=== PATIENT | female | born 1995 | race Caucasian/White ===

== ENCOUNTER → 2016-07-11 | Outpatient (CLI) | payer OTHER ==
--- NOTE | 2016-07-11 14:25 | REP ---
OB ULTRASOUND: Real-time sonographic evaluation of gravid uterus performed utilizing transabdominal technique. There is a single living intrauterine gestation. The estimated gestational age is 30 weeks 6 days with EDC 09/13/2016. Today's measurements indicate appropriate growth. BPD 76 mm = 30 weeks 3 days, 43rd percentile HC 285 mm = 31 weeks 2 days, 56th percentile AC 264 mm = 30 weeks 4 days, 45th percentile Femur length 60 mm = 31 weeks 2 days, 55th percentile HC/AC ratio 1.08 within normal range. Estimated weight 1646 grams, 41st percentile. Cervix closed and measures 3.3 cm in length. heart rate 141 beats per minute. Amniotic fluid within normal limits, PARAM 11.3 within normal range of 8.8 to 23.8. S/D ratio 3.93 is slightly above normal range of 2.5 to 3.5. RI 0.75 is at upper limits of the normal range, 0.59 to 0.75. SEEN/GROSSLY UNREMARKABLE Lateral ventricles Yes Posterior fossa Yes Upper lip Yes Four-chamber heart Yes LVOT Yes RVOT Yes Stomach Yes Cord insertion Yes Three vessel cord Yes Kidneys Yes Bladder Yes Spine Yes Echogenic focus in the left ventricle likely related to chordae tendineae. position: Vertex. Placenta: Grade 1 and to the right with no previa or abruption. Signed by Chip Nina MD 07/11/2016 08:11 P
== END ==
LOC: M RAD 09:35
PROVIDERS: ATTEND Advanced Practice Midwife
DX: Z36 Encounter for antenatal screening of mother (principal); Z3A.30 30 weeks gestation of pregnancy

== ENCOUNTER → 2016-08-02 | Outpatient (CLI) | payer OTHER ==
[2016-08-02 15:25] LABS: BASO % 0.3 % (0.0-1.0); EOS % 0.5 % (0.0-3.0); LARGE UNSTAINED CELL # 0.1 K/mm3 (0.0-0.4); LARGE UNSTAINED CELL % 1.3 % (0.0-4.0); LYMPH % 17.7 % (24.0-44.0); MEAN CORPUSCULAR HEMOGLOBIN 30.4 pg (27.0-33.0); MEAN CORPUSCULAR HGB CONC 33.3 g/dl (32.0-36.5); MEAN CORPUSCULAR VOLUME 91.4 fl (80.0-96.0); MONO # 0.6 K/mm3 (0.0-0.8); MONO % 5.9 % (0.0-5.0); NEUTROPHILS # 7.9 K/mm3 (1.8-7.7); NEUTROPHILS % 74.4 % (36.0-66.0); PLATELET COUNT, AUTOMATED 302 k/mm3 (150-450); RED CELL DISTRIBUTION WIDTH 12.5 % (11.5-14.5); WHITE BLOOD COUNT 10.6 K/mm3 (4.0-10.0)
== END ==
LOC: M LAB 13:27
PROVIDERS: ATTEND Advanced Practice Midwife
DX: Z36 Encounter for antenatal screening of mother (principal)

== ENCOUNTER 2016-08-06 23:13 | Outpatient (CLI) | payer OTHER ==
[~2016-08-06] VITALS: Ht 165.1 cm; Wt 96.0 kg
[2016-08-06 23:40] VITALS: BP 137/77
== END 2016-08-07 00:35 | disposition home or self-care (01) ==
LOC: M LDO 23:13
PROVIDERS: ATTEND Advanced Practice Midwife
DX: O26.893 Other specified pregnancy related conditions, third trimester (principal); Z3A.34 34 weeks gestation of pregnancy

== ENCOUNTER → 2016-08-18 | Outpatient (REF) | payer OTHER | LOC: M LAB REF 09:00 | PROVIDERS: ATTEND Advanced Practice Midwife | DX: Z36 Encounter for antenatal screening of mother (principal) ==

== ENCOUNTER 2016-09-19 16:57 | Inpatient (IN) | payer OTHER ==
[2016-09-19] VITALS (25 sets, daily range): BP systolic 108–162; BP diastolic 59–93
[~2016-09-19] VITALS: Ht 165.1 cm; Wt 93.0 kg
[2016-09-19] MEDS ORDERED: LACTATED RINGER'S 1000 ML IV STA (17:49)
[2016-09-19] MEDS ORDERED: LR 1,000 ML IV SCH (17:49)
[2016-09-19 18:57] LABS: MEAN CORPUSCULAR HEMOGLOBIN 30.1 pg (27.0-33.0); MEAN CORPUSCULAR HGB CONC 33.5 g/dl (32.0-36.5); MEAN CORPUSCULAR VOLUME 90.1 fl (80.0-96.0); RED CELL DISTRIBUTION WIDTH 13.1 % (11.5-14.5); WHITE BLOOD COUNT 18.5 K/mm3 (4.0-10.0)
[2016-09-19] MEDS ORDERED: FENTANYL 2MCG/ML ROPIVACAINE 0.2% IN 0.9% NACL 200ML IVBAG As Ordered ONE (19:05)
[2016-09-19 19:29] LABS: ALT/SGPT 22 U/L (12-78); AST/SGOT 17 U/L (15-37); BILIRUBIN,TOTAL 0.2 MG/DL (0.2-1.0); CREATININE FOR GFR 0.46 MG/DL (0.55-1.02); URIC ACID 4.5 MG/DL (2.6-6.0)
[2016-09-19 19:45] LABS: METHADONE URINE NEGATIVE (NEGATIVE)
[2016-09-19] MEDS ORDERED: diphenhydrAMINE INJ 50MG/ML VIAL (J1200) IV PRN (20:30)
[2016-09-19] MEDS ORDERED: NALOXONE INJ 0.4 MG/1 ML VIAL (J2310) IV PRN (20:30)
[2016-09-19] MEDS ORDERED: ONDANSETRON 4MG/2ML VIAL (J2405) IV PRN (20:30)
[2016-09-19] MEDS ORDERED: EPIDURAL COMMENT XX SCH (20:30)
[2016-09-19] MEDS ORDERED: FENTANYL/ROPIVACAINE/NACL BAG 200 ML EPIDURAL SCH (20:30)
[2016-09-19] MEDS ORDERED: EPIDURAL/PCA KEYS XX PRN (20:30)
[2016-09-19] MEDS ORDERED: REFRIGERATOR IV KEYS XX PRN (20:30)
[2016-09-19] MEDS ORDERED: LACTATED RINGER'S 1000 ML IV PRN (20:30)
[2016-09-19] MEDS ORDERED: ePHEDrine SULFATE 25 MG/5 ML(5MG/ML) SYRINGE IV PRN (20:30)
[2016-09-19] MEDS ORDERED: OXYTOCIN 30 UNITS IN 0.9% NaCl 500ML IV BAG (J2590) As Ordered ONE (23:06)
[2016-09-20] VITALS (9 sets, daily range): BP systolic 114–155; BP diastolic 58–86
[2016-09-20] MEDS ORDERED: OXYTOCIN DRIP 30 UNITS in APPROPRIATE DILUENT 1 EA IV SCH (00:52)
[2016-09-20] MEDS ORDERED: LR 1,000 ML IV SCH (00:52)
[2016-09-20] MEDS ORDERED: IBUPROFEN 800 MG TAB PO PRN (01:00)
[2016-09-20] MEDS ORDERED: RHOGAM 300 MCG (1500 IU) INJ (J2790) IM SCH (01:00)
[2016-09-20] MEDS ORDERED: METHYLERGONOVINE MALEATE 0.2 MG TAB PO PRN (01:00)
[2016-09-20] MEDS ORDERED: PROMETHAZINE 25 MG TAB PO PRN (01:00)
[2016-09-20] MEDS ORDERED: ACETAMINOPHEN 500 MG TAB PO PRN (01:00)
[2016-09-20] MEDS ORDERED: DOCUSATE SODIUM 100 MG CAP PO PRN (01:00)
[2016-09-20] MEDS ORDERED: ONDANSETRON 4MG/2ML VIAL (J2405) IV PRN (01:00)
[2016-09-20] MEDS ORDERED: MEASLES,MUMPS,RUBELLA VACCINE INJ (MMR-II) (90707) SC SCH (01:00)
[2016-09-20] MEDS ORDERED: DIBUCAINE 1% OINTMENT 30GM TOP PRN (01:00)
[2016-09-20] MEDS: PRENATAL VITAMIN TAB PO SCH (09:16)
[2016-09-21 06:42] VITALS: BP 106/51
[2016-09-21] MEDS: PRENATAL VITAMIN TAB PO SCH (08:09)
[2016-09-21] MEDS ORDERED: ACET50TA PO (08:43)
[2016-09-21] MEDS ORDERED: IBUP-1114 PO (08:43)
[2016-09-21] MEDS ORDERED: COLA100C3 PO (08:44)
== END 2016-09-21 16:45 | disposition home or self-care (01) | DRG 560 ==
LOC: M LDO 16:57 → M LDI 17:45 → M OBS 09-20 02:50
PROVIDERS: ADMIT Obstetrics & Gynecology; ATTEND Obstetrics & Gynecology
PROC: 10E0XZZ Delivery of Products of Conception, External Approach (ICD-10-PCS; principal; 2016-09-20)
PROC: 0HQ9XZZ Repair Perineum Skin, External Approach (ICD-10-PCS; 2016-09-20)
DX: O48.0 Post-term pregnancy (principal); O70.0 First degree perineal laceration during delivery; Z37.0 Single live birth; Z3A.40 40 weeks gestation of pregnancy

== ENCOUNTER 2017-01-02 17:47 | Emergency (ER) | payer MEDICAID, OTHER ==
[~2017-01-02] VITALS: Ht 165.1 cm; Wt 83.4 kg
[~2017-01-02 17:47] MED LIST: ACET50TA PO; COLA100C5 PO; IBUP-1114 PO
[2017-01-02] MEDS ORDERED: ONDANSETRON 4 MG ORAL DISINTEGRATING TAB (S0181) PO ONE (19:45)
[2017-01-02 20:10] LABS: BASO # 0.1 K/mm3 (0.0-0.2); BASO % 0.6 % (0.0-1.0); EOS # 0.2 K/mm3 (0.0-0.50); EOS % 2.4 % (0.0-3.0); LARGE UNSTAINED CELL # 0.1 K/mm3 (0.0-0.4); LARGE UNSTAINED CELL % 1.3 % (0.0-4.0); LYMPH # 2.9 K/mm3 (1.5-6.5); LYMPH % 28.6 % (24.0-44.0); MEAN CORPUSCULAR HEMOGLOBIN 27.6 pg (27.0-33.0); MEAN CORPUSCULAR VOLUME 86.2 fl (80.0-96.0); MONO # 0.4 K/mm3 (0.0-0.8); NEUTROPHILS # 6.2 K/mm3 (1.8-7.7); NEUTROPHILS % 63.1 % (36.0-66.0); PLATELET COUNT, AUTOMATED 336 k/mm3 (150-450); RED CELL DISTRIBUTION WIDTH 13.7 % (11.5-14.5); WHITE BLOOD COUNT 9.8 K/mm3 (4.0-10.0)
[2017-01-02] MEDS ORDERED: PROMETHAZINE 25 MG TAB PO ONE (20:15)
[2017-01-02 21:12] LABS: ALBUMIN 4.1 GM/DL (3.2-5.2); ALBUMIN/GLOBULIN RATIO 1.11 (1.00-1.93); ALKALINE PHOSPHATASE 97 U/L (45-117); ALT/SGPT 80 U/L (12-78); ANION GAP 10 MEQ/L (8-16); AST/SGOT 43 U/L (15-37); BILIRUBIN,DIRECT 0.3 MG/DL (0.0-0.2); BILIRUBIN,TOTAL 0.8 MG/DL (0.2-1.0); BLOOD UREA NITROGEN 8 MG/DL (7-18); CALCIUM LEVEL 9.3 MG/DL (8.5-10.1); CARBON DIOXIDE LEVEL 22 MEQ/L (21-32); CHLORIDE LEVEL 108 MEQ/L (98-107); CREATININE FOR GFR 0.57 MG/DL (0.55-1.02); GLUCOSE, FASTING 80 MG/DL (70-105); HCG, SERUM QUANTITATIVE 37177 MIU/ML; POTASSIUM SERUM 3.6 MEQ/L (3.5-5.1); SODIUM LEVEL 140 MEQ/L (136-145); TOTAL PROTEIN 7.8 GM/DL (6.4-8.2)
--- NOTE | 2017-01-02 21:20 | REPUSA ---
Clinical history: nausea, vomiting. Findings: Real-time transabdominal and transvaginal ultrasound images of the pelvis were obtained. Th ere is a single live intrauterine . The crown rump length measures 0.6 cm. The heart rate measures 113 BPM. There is no evidence of a subchorionic hemorrhage. There is a left ovarian cys t measuring up to 1.8 cm. There is no evidence of free fluid. Impression: 1. SIngle live intrauterine measuring 6 weeks 3 days, with a heart rate of 113 bpm. 2. Left ovarian corpus luteum cyst.
[2017-01-02 22:26] VITALS: BP 117/62
== END 2017-01-02 22:27 | disposition home or self-care (01) ==
LOC: M ED 17:47
DX: O21.9 Vomiting of pregnancy, unspecified (principal); O26.891 Other specified pregnancy related conditions, first trimester; R19.7 Diarrhea, unspecified; O99.331 Smoking (tobacco) complicating pregnancy, first trimester; F17.210 Nicotine dependence, cigarettes, uncomplicated; Z3A.00 Weeks of gestation of pregnancy not specified

== ENCOUNTER → 2017-03-15 | Outpatient (CLI) | payer OTHER ==
[2017-03-15 14:54] LABS: BASO % 0.3 % (0.0-1.0); EOS # 0.1 10^3/uL (0.0-0.50); EOS % 0.5 % (0.0-3.0); IMMATURE GRANULOCYTE % 0.4 % (0-0); LYMPH # 2.1 10^3/uL (1.5-6.5); LYMPH % 18.6 % (24.0-44.0); MEAN CORPUSCULAR HEMOGLOBIN 30.4 pg (27.0-33.0); MEAN CORPUSCULAR HGB CONC 34.3 g/dl (32.0-36.5); MEAN CORPUSCULAR VOLUME 88.7 fl (80.0-96.0); MONO # 0.7 10^3/uL (0.0-0.8); MONO % 5.7 % (0.0-5.0); NEUTROPHILS # 8.4 10^3/uL (1.8-7.7); NEUTROPHILS % 74.5 % (36.0-66.0); PLATELET COUNT, AUTOMATED 282 10^3/uL (150-450); RED CELL DISTRIBUTION WIDTH 14.2 % (11.5-14.5); WHITE BLOOD COUNT 11.3 10^3/uL (4.0-10.0)
[2017-03-16 10:33] LABS: HBsAg Prenatal NEGATIVE (NEGATIVE)
== END ==
LOC: M LAB 14:15
PROVIDERS: ATTEND Advanced Practice Midwife
DX: Z3A.14 14 weeks gestation of pregnancy (principal)

== ENCOUNTER → 2017-03-27 | Outpatient (CLI) | payer OTHER ==
--- NOTE | 2017-03-27 15:59 | REP ---
Clinical: Anatomical evaluation. Comparison: 01/02/2017 . Findings: Examination demonstrates a single live intrauterine in cephalic presentation. motion is identified by technologist. Placenta is noted posteriorly and grade zero without evidence for placenta previa or abruption. Amniotic fluid volume is normal. Cervix measures 4.3 cm in length and appears closed. 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 No evidence for nuchal cord. Gestational age by LMP 18 weeks 3 days with SONYA 08/25/2017 . Gestational age by current measurements 18 weeks 4 days with SONYA 08/24/2017 . FHR equals 160 beats per minute. BPD 4.3 cm 19 weeks 0 days HC 15.6 cm 18 weeks 4 days AC 13.8 cm 19 weeks 2 days FL 2.8 cm 18 weeks 4 days HL 2.6 cm 18 weeks 2 days HC/AC ratio 1.13 Estimated weight 264 grams ( 66 percentile). Anatomical assessment demonstrates normal structures including cranium, choroid plexus, cavum, cerebellum/posterior fossa, lungs, four-chamber heart/ventricular outflow tracts, diaphragm, stomach, cord insertion/three-vessel cord, kidneys/bladder, spine, and extremities. Impression: 1. Single live intrauterine in cephalic presentation demonstrating appropriate interval growth. Limited evaluation of the facial features. Otherwise normal, complete anatomical assessment. 2. Left uterine synechia. Signed by Agapito Sherman MD 03/27/2017 03:50 P
== END ==
LOC: M RAD 14:30
PROVIDERS: ATTEND Advanced Practice Midwife
DX: Z34.82 Encounter for supervision of other normal pregnancy, second trimester (principal); Z3A.18 18 weeks gestation of pregnancy

== ENCOUNTER → 2017-05-21 | Outpatient (CLI) | payer OTHER | LOC: M RAD 14:54 | DX: Z36.3 Encounter for antenatal screening for malformations (principal); Z3A.26 26 weeks gestation of pregnancy | CPT/HCPCS: 76816 ==

== ENCOUNTER → 2017-06-22 | Outpatient (CLI) | payer OTHER ==
[2017-06-22 17:41] LABS: BASO % 0.3 % (0.0-1.0); EOS # 0.1 10^3/uL (0.0-0.50); EOS % 0.6 % (0.0-3.0); HEMATOCRIT 34.4 % (36.0-47.0); HEMOGLOBIN 11.5 g/dl (12.0-16.0); IMMATURE GRANULOCYTE % 1.4 % (0-3.0); LYMPH # 2.2 10^3/uL (1.5-6.5); LYMPH % 18.9 % (24.0-44.0); MEAN CORPUSCULAR HEMOGLOBIN 30.9 pg (27.0-33.0); MEAN CORPUSCULAR HGB CONC 33.4 g/dl (32.0-36.5); MEAN CORPUSCULAR VOLUME 92.5 fl (80.0-96.0); MONO # 0.9 10^3/uL (0.0-0.8); MONO % 8.1 % (0.0-5.0); NEUTROPHILS # 8.2 10^3/uL (1.8-7.7); NEUTROPHILS % 70.7 % (36.0-66.0); PLATELET COUNT, AUTOMATED 292 10^3/uL (150-450); RED BLOOD COUNT 3.72 10^6/uL (4.00-5.40); RED CELL DISTRIBUTION WIDTH 13.5 % (11.5-14.5); WHITE BLOOD COUNT 11.6 10^3/uL (4.0-10.0)
[2017-06-22 17:50] LABS: GLUCOSE CHALLENGE TEST 1 HOUR 104 MG/DL (LESS THAN 140)
== END ==
LOC: M SMT 13:07
DX: Z34.83 Encounter for supervision of other normal pregnancy, third trimester (principal)
CPT/HCPCS: 82950

== ENCOUNTER → 2017-08-03 | Outpatient (REF) | payer OTHER | LOC: M LAB REF 17:02 | DX: Z34.83 Encounter for supervision of other normal pregnancy, third trimester (principal) ==

== ENCOUNTER 2017-08-22 21:28 | Outpatient (CLI) | payer OTHER | END 2017-08-22 23:35 | disposition home or self-care (01) | LOC: M LDO 21:28 | DX: O47.1 False labor at or after 37 completed weeks of gestation (principal); Z3A.39 39 weeks gestation of pregnancy ==

== ENCOUNTER 2017-08-24 22:51 | Outpatient (CLI) | payer OTHER | END 2017-08-25 01:32 | disposition home or self-care (01) | LOC: M LDO 22:51 | DX: O47.1 False labor at or after 37 completed weeks of gestation (principal); Z3A.39 39 weeks gestation of pregnancy ==

== ENCOUNTER 2017-08-26 15:36 | Inpatient (IN) | payer OTHER ==
[2017-08-26] MEDS: LACTATED RINGER'S 1000 ML IV (16:17)
[2017-08-26 16:41] LABS: HEMATOCRIT 34.5 % (36.0-47.0); HEMOGLOBIN 11.6 g/dl (12.0-15.5); MEAN CORPUSCULAR HEMOGLOBIN 30.4 pg (27.0-33.0); MEAN CORPUSCULAR HGB CONC 33.6 g/dl (32.0-36.5); MEAN CORPUSCULAR VOLUME 90.3 fl (80.0-96.0); PLATELET COUNT, AUTOMATED 284 10^3/uL (150-450); RED BLOOD COUNT 3.82 10^6/uL (4.00-5.40); RED CELL DISTRIBUTION WIDTH 13.6 % (11.5-14.5); WHITE BLOOD COUNT 12.8 10^3/uL (4.0-10.0)
[2017-08-26] MEDS: LR 1,000 ML IV (17:00)
[2017-08-26] MEDS: OXYTOCIN DRIP 30 UNITS in APPROPRIATE DILUENT 1 EA IV (17:15)
[2017-08-26] MEDS ORDERED: FENTANYL 2MCG/ML ROPIVACAINE 0.2% IN 0.9% NACL 200ML IVBAG As Ordered (21:26)
[2017-08-26] MEDS ORDERED: EPIDURAL/PCA KEYS XX (21:54)
[2017-08-26] MEDS ORDERED: diphenhydrAMINE INJ 50MG/ML VIAL (J1200) IV (21:54)
[2017-08-26] MEDS ORDERED: NALOXONE INJ 0.4 MG/1 ML VIAL (J2310) IV (21:54)
[2017-08-26] MEDS ORDERED: ePHEDrine SULFATE 25 MG/5 ML(5MG/ML) SYRINGE IV (21:54)
[2017-08-26] MEDS ORDERED: FENTANYL/ROPIVACAINE/NACL BAG 200 ML EPIDURAL (21:54)
[2017-08-26] MEDS ORDERED: LACTATED RINGER'S 1000 ML IV (21:54)
[2017-08-26] MEDS ORDERED: EPIDURAL COMMENT XX (21:54)
[2017-08-26] MEDS ORDERED: REFRIGERATOR IV KEYS XX (21:54)
[2017-08-26] MEDS ORDERED: ONDANSETRON 4MG/2ML VIAL (J2405) IV (21:54)
[2017-08-27] MEDS ORDERED: MEASLES,MUMPS,RUBELLA VACCINE INJ (MMR-II) (90707) SC (00:30)
[2017-08-27] MEDS ORDERED: DIBUCAINE 1% OINTMENT 30GM TOP (00:30)
[2017-08-27] MEDS ORDERED: MOM 30ML SUSPENSION UDC PO (00:30)
[2017-08-27] MEDS ORDERED: ACETAMINOPHEN 500 MG TAB PO (00:30)
[2017-08-27] MEDS ORDERED: DOCUSATE SODIUM 100 MG CAP PO (00:30)
[2017-08-27] MEDS ORDERED: ANUSOL HC CREAM 30GM TOP (00:30)
[2017-08-27] MEDS: IBUPROFEN 800 MG TAB PO ×3 (00:47→20:34)
[2017-08-27] MEDS: METHYLERGONOVINE MALEATE 0.2 MG TAB PO ×4 (00:48→18:06)
[2017-08-27] MEDS: RHOGAM 300 MCG (1500 IU) INJ (J2790) IM (07:37)
[2017-08-27] MEDS: PRENATAL VITAMINS CHEWABLE TABLET PO (08:14)
[2017-08-28] MEDS: METHYLERGONOVINE MALEATE 0.2 MG TAB PO (00:51)
[2017-08-28] MEDS ORDERED: METHYLERGONOVINE MALEATE 0.2 MG TAB PO (07:00)
[2017-08-28] MEDS: IBUPROFEN 800 MG TAB PO (07:50)
[2017-08-28] MEDS: PRENATAL VITAMINS CHEWABLE TABLET PO (09:00)
[2017-08-28] MEDS ORDERED: MEASLES,MUMPS,RUBELLA VACCINE INJ (MMR-II) (90707) As Ordered (14:01)
== END 2017-08-28 10:10 | disposition home or self-care (01) | DRG 560 ==
LOC: M LDI 15:36 → M OBS 08-27 01:57
PROVIDERS: Advanced Practice Midwife
PROC: 10E0XZZ Delivery of Products of Conception, External Approach (ICD-10-PCS; principal; 2017-08-26)
PROC: 3E033VJ Introduction of Other Hormone into Peripheral Vein, Percutaneous Approach (ICD-10-PCS; 2017-08-26)
PROC: 10907ZC Drainage of Amniotic Fluid, Therapeutic from Products of Conception, Via Natural or Artificial Opening (ICD-10-PCS; 2017-08-26)
DX: O48.0 Post-term pregnancy (principal); F17.200 Nicotine dependence, unspecified, uncomplicated; Z37.0 Single live birth; Z88.0 Allergy status to penicillin; Z91.048 Other nonmedicinal substance allergy status; Z91.030 Bee allergy status; Z3A.40 40 weeks gestation of pregnancy; O99.334 Smoking (tobacco) complicating childbirth

== ENCOUNTER 2017-08-28 17:07 | Outpatient (CLI) | payer OTHER ==
[~2017-08-28 17:07] MED LIST changes: -ACET50TA PO; -COLA100C5 PO; -IBUP-1114 PO; +MEASLES,MUMPS,RUBELLA VACCINE INJ (MMR-II) (90707) As Ordered
[2017-08-28] MEDS: MEASLES,MUMPS,RUBELLA VACCINE INJ (MMR-II) (90707) SQ (17:17)
== END 2017-08-28 17:25 | disposition home or self-care (01) ==
LOC: M LDO 17:07
DX: B06.89 Other rubella complications (principal); Z78.9 Other specified health status
CPT/HCPCS: 90707

== ENCOUNTER → 2020-07-07 | Outpatient (REF) ==
[~2020-07-07] MED LIST changes: +COLA100C5 PO; +IBUP-1114 PO; +MAPA500T2 PO; -MEASLES,MUMPS,RUBELLA VACCINE INJ (MMR-II) (90707) As Ordered; +PRENTAB9 PO
== END ==
LOC: M LABSMTC 11:23
PROVIDERS: ATTEND Pediatrics
DX: Z20.822 Contact with and (suspected) exposure to COVID-19 (principal)

== ENCOUNTER → 2020-09-30 | Outpatient (REF) | LOC: M LABSMTC 12:36 | PROVIDERS: ATTEND Pediatrics | DX: Z02.89 Encounter for other administrative examinations (principal); Z20.822 Contact with and (suspected) exposure to COVID-19 ==

== ENCOUNTER → 2021-11-29 | Outpatient (REF) | LOC: M EMP 12:26 | PROVIDERS: ATTEND Family Medicine | DX: Z11.52 Encounter for screening for COVID-19 (principal) ==

== ENCOUNTER → 2022-02-27 | Outpatient (CLI) | payer OTHER ==
[2022-02-27 14:00] LABS: HEMOGLOBIN 11.4 g/dl (12.0-15.5); MEAN CORPUSCULAR HEMOGLOBIN 28.6 pg (27.0-33.0); MEAN CORPUSCULAR HGB CONC 32.6 g/dl (32.0-36.5); MEAN CORPUSCULAR VOLUME 87.7 fl (80.0-96.0); PLATELET COUNT, AUTOMATED 339 10^3/uL (150-450); RED BLOOD COUNT 3.99 10^6/uL (4.00-5.40); WHITE BLOOD COUNT 8.4 10^3/uL (4.0-10.0)
[2022-02-27 15:49] LABS: HEPATITIS C VIRUS ABY INDEX 0.2 INDEX (<0.8); HIV 1&2 SCREEN CENTAUR NEGATIVE (NEGATIVE)
[2022-02-28 00:28] LABS: GC DNA AMPLIFICATION NEGATIVE (NEGATIVE)
== END ==
LOC: M PLALAB 09:41
PROVIDERS: ATTEND Specialist
DX: Z36.89 Encounter for other specified antenatal screening (principal)

== ENCOUNTER → 2022-03-02 | Outpatient (CLI) | payer OTHER | LOC: M WHC 10:34 | PROVIDERS: ATTEND Specialist | DX: Z34.83 Encounter for supervision of other normal pregnancy, third trimester (principal); Z3A.33 33 weeks gestation of pregnancy ==

== ENCOUNTER → 2022-04-14 | Outpatient (REF) | payer OTHER | LOC: M PLALAB 09:00 | PROVIDERS: ATTEND Advanced Practice Midwife | DX: Z3A.36 36 weeks gestation of pregnancy (principal) ==

== ENCOUNTER → 2022-04-21 | Outpatient (CLI) | payer OTHER ==
[2022-04-21 17:34] LABS: HEMATOCRIT 36.2 % (36.0-47.0); HEMOGLOBIN 11.6 g/dl (12.0-15.5); MEAN CORPUSCULAR HEMOGLOBIN 27.7 pg (27.0-33.0); MEAN CORPUSCULAR VOLUME 86.4 fl (80.0-96.0); PLATELET COUNT, AUTOMATED 337 10^3/uL (150-450); RED BLOOD COUNT 4.19 10^6/uL (4.00-5.40); WHITE BLOOD COUNT 9.8 10^3/uL (4.0-10.0)
[2022-04-21 17:53] LABS: TOTAL PROTEIN,RANDOM URINE 34.2 MG/DL (0.0-14.0)
[2022-04-21 17:58] LABS: CREATININE,RANDOM URINE 166.9 MG/DL
[2022-04-21 18:00] LABS: ALBUMIN 2.2 G/DL (3.2-5.2); ALKALINE PHOSPHATASE 189 U/L (46-116); ALT/SGPT 25 U/L (7.0-40); AST/SGOT 19 U/L (<34); BILIRUBIN,TOTAL 0.3 MG/DL (0.3-1.2); BLOOD UREA NITROGEN 7 MG/DL (9-23); CALCIUM LEVEL 8.9 MG/DL (8.5-10.1); CARBON DIOXIDE LEVEL 21 MMOL/L (20-31); CHLORIDE LEVEL 107 MMOL/L (98-107); CREATININE FOR GFR 0.61 MG/DL (0.55-1.30); GLOMERULAR FILTRATION RATE > 60.0 (>60); GLUCOSE, FASTING 90 MG/DL (60-100); POTASSIUM SERUM 4.2 MMOL/L (3.5-5.1); SODIUM LEVEL 137 MMOL/L (136-145); TOTAL PROTEIN 5.8 G/DL (5.7-8.2)
== END ==
LOC: M PLALAB 15:36
PROVIDERS: ATTEND Obstetrics & Gynecology
DX: O13.9 Gestational [pregnancy-induced] hypertension without significant proteinuria, unspecified trimester (principal); Z3A.00 Weeks of gestation of pregnancy not specified

== ENCOUNTER 2022-04-25 15:16 | Inpatient (IN) | payer OTHER ==
[~2022-04-25] VITALS: Ht 165.1 cm; Wt 118.9 kg
[2022-04-25] VITALS (7 sets, daily range): BP systolic 106–138; BP diastolic 59–81
[2022-04-25] MEDS ORDERED: FAMO20TA5 PO (15:34)
[2022-04-25] MEDS ORDERED: PRENTAB9 PO (15:36)
[2022-04-25] MEDS ORDERED: HOME MED LIST COMPLETE! XX SCH (15:40)
[2022-04-25] MEDS ORDERED: CARBOPROST TROMETHAMINE 250 MCG/ML AMP IM PRN (15:55)
[2022-04-25] MEDS ORDERED: LIDOCAINE 1% MDV 20ML VIAL INFIL PRN (15:55)
[2022-04-25] MEDS ORDERED: TRANEXAMIC ACID INJection 1,000 MG in NS 100 ML IV PRN (15:55)
[2022-04-25] MEDS ORDERED: OXYTOCIN DRIP 30 UNITS in IV 1 EA IV PRN (15:55)
[2022-04-25 16:39] LABS: HEMATOCRIT 37.9 % (36.0-47.0); HEMOGLOBIN 12.3 g/dl (12.0-15.5); MEAN CORPUSCULAR HEMOGLOBIN 27.9 pg (27.0-33.0); MEAN CORPUSCULAR HGB CONC 32.5 g/dl (32.0-36.5); MEAN CORPUSCULAR VOLUME 85.9 fl (80.0-96.0); PLATELET COUNT, AUTOMATED 397 10^3/uL (150-450); RED BLOOD COUNT 4.41 10^6/uL (4.00-5.40); WHITE BLOOD COUNT 11.6 10^3/uL (4.0-10.0)
[2022-04-25] MEDS: miSOPROStol 50MCG 1/2 TABLET PO SCH ×2 (17:11→22:06)
[2022-04-26] VITALS (40 sets, daily range): BP systolic 114–179; BP diastolic 60–101
[2022-04-26] MEDS ORDERED: LR 1,000 ML IV SCH (02:15)
[2022-04-26] MEDS ORDERED: OXYTOCIN DRIP 30 UNITS in IV 1 EA IV SCH ×2 (02:15→12:15)
[2022-04-26] MEDS ORDERED: diphenhydrAMINE 50MG/ML VIAL IV PRN (09:20)
[2022-04-26] MEDS ORDERED: EPIDURAL/PCA KEYS XX PRN (09:20)
[2022-04-26] MEDS ORDERED: NALOXONE INJ 0.4MG/1ML VIAL IV PRN (09:20)
[2022-04-26] MEDS ORDERED: LR 500 ML IV PRN (09:20)
[2022-04-26] MEDS ORDERED: ONDANSETRON 4MG 2ML VIAL IV PRN (09:20)
[2022-04-26] MEDS ORDERED: FENTANYL/ROPIVACAINE/NACL BAG 100 ML EPIDURAL SCH (09:20)
[2022-04-26] MEDS ORDERED: ePHEDrine SULFATE 25 MG/5 ML(5MG/ML) SYRINGE IVP PRN (09:20)
[2022-04-26] MEDS ORDERED: RHOGAM 300MCG (1500IU) INJ IM SCH (11:20)
[2022-04-26] MEDS ORDERED: IBUPROFEN 800 MG TAB PO PRN (11:20)
[2022-04-26] MEDS ORDERED: ACETAMINOPHEN TAB 650MG DOSE (2X325MG) PO PRN (11:20)
[2022-04-26] MEDS ORDERED: ACETAMINOPHEN 500 MG TAB PO PRN (11:20)
[2022-04-26] MEDS ORDERED: DIBUCAINE 1% OINTMENT 30GM TOP PRN (11:20)
[2022-04-26] MEDS ORDERED: DOCUSATE SODIUM 100MG CAPSULE PO PRN (11:20)
[2022-04-26] MEDS ORDERED: IBUPROFEN 600MG TAB PO PRN (11:20)
[2022-04-27 06:00] VITALS: BP 138/85
[2022-04-27] MEDS ORDERED: PRENATAL VITAMINS CHEWABLE TABLET PO SCH (09:00)
[2022-04-28] MEDS ORDERED: MEASLES,MUMPS,RUBELLA VACCINE INJ (MMR-II) SC.IMMUN ONE (09:00)
== END 2022-04-27 15:20 | disposition home or self-care (01) | DRG 560 ==
LOC: M LDI 15:16 → M OBS 04-26 17:35
PROVIDERS: ADMIT Obstetrics & Gynecology; ATTEND Advanced Practice Midwife
PROC: 3E033VJ Introduction of Other Hormone into Peripheral Vein, Percutaneous Approach (ICD-10-PCS; 2022-04-25)
PROC: 10E0XZZ Delivery of Products of Conception, External Approach (ICD-10-PCS; principal; 2022-04-26)
PROC: 0HQ9XZZ Repair Perineum Skin, External Approach (ICD-10-PCS; 2022-04-26)
DX: O13.4 Gestational [pregnancy-induced] hypertension without significant proteinuria, complicating childbirth (principal); O70.0 First degree perineal laceration during delivery; Z3A.40 40 weeks gestation of pregnancy; Z37.0 Single live birth

== ENCOUNTER 2022-08-31 13:19 | Day surgery (SDC) | payer OTHER ==
[~2022-08-31] VITALS: Ht 165.1 cm; Wt 112.5 kg
[~2022-08-31 13:19] MED LIST changes: +FAMO1TAB11 PO; +FAMO20TA5 PO
[2022-08-31 14:08] LABS: HEMATOCRIT 38.1 % (36.0-47.0); HEMOGLOBIN 12.3 g/dl (12.0-15.5); MEAN CORPUSCULAR HEMOGLOBIN 26.6 pg (27.0-33.0); MEAN CORPUSCULAR HGB CONC 32.3 g/dl (32.0-36.5); MEAN CORPUSCULAR VOLUME 82.3 fl (80.0-96.0); PLATELET COUNT, AUTOMATED 349 10^3/uL (150-450); RED BLOOD COUNT 4.63 10^6/uL (4.00-5.40); WHITE BLOOD COUNT 11.1 10^3/uL (4.0-10.0)
[2022-08-31] MEDS ORDERED: LR 1,000 ML IV SCH ×2 (14:10→17:50)
[2022-08-31 14:34] LABS: HCG, SERUM QUALITATIVE NEGATIVE (NEGATIVE)
[2022-08-31] MEDS ORDERED: MIDAZOLAM INJ 2MG/2ML VIAL As Ordered ONE (15:33)
[2022-08-31] MEDS ORDERED: fentaNYL 100 MCG/2 ML INJECTION As Ordered ONE ×2 (15:34→17:23)
[2022-08-31] MEDS ORDERED: KETOROLAC 60MG 2ML VIAL As Ordered ONE (15:34)
[2022-08-31] MEDS ORDERED: propofoL 200 MG/20 ML VIAL As Ordered ONE (15:34)
[2022-08-31] MEDS ORDERED: ONDANSETRON 4MG 2ML VIAL As Ordered ONE (15:34)
[2022-08-31] MEDS ORDERED: ROCURONIUM BROMIDE 50MG/5ML VIAL As Ordered ONE (15:34)
[2022-08-31] MEDS ORDERED: LIDOCAINE 2% 100MG/5ML SDV (FOR ANES.) As Ordered ONE (15:34)
[2022-08-31] MEDS ORDERED: BUPIVACAINE HCL 0.25% 30ML VIAL As Ordered ONE (16:44)
[2022-08-31] MEDS ORDERED: ACETAMINOPHEN 1000MG 100ML IV BAG As Ordered ONE (17:03)
[2022-08-31] MEDS ORDERED: SUGAMMADEX SODIUM 500 MG/5 ML VIAL (BRIDION) As Ordered ONE (17:22)
[2022-08-31] MEDS ORDERED: HYDROMORPHONE HCL 0.5 MG/ 0.5 ML SYRINGE IV PRN (17:50)
[2022-08-31] MEDS ORDERED: fentaNYL 100 MCG/2 ML INJECTION IV PRN (17:50)
[2022-08-31] MEDS ORDERED: ONDANSETRON 4MG 2ML VIAL IV PRN (17:50)
[2022-08-31] MEDS ORDERED: oxyCODONE 5MG TAB PO PRN (17:50)
[2022-08-31] MEDS ORDERED: IBUP80TA PO (18:02)
[2022-08-31] MEDS ORDERED: ONDA4TAB6 PO (18:03)
[2022-08-31] MEDS ORDERED: COLA100C5 PO (18:03)
[2022-08-31] MEDS ORDERED: PERC5TAB12 PO (18:04)
[2022-08-31 19:25] VITALS: BP 137/79
== END 2022-08-31 19:30 | disposition home or self-care (01) ==
LOC: M SDC 13:19
PROVIDERS: ATTEND Obstetrics & Gynecology
DX: Z30.2 Encounter for sterilization (principal); N73.6 Female pelvic peritoneal adhesions (postinfective); K21.9 Gastro-esophageal reflux disease without esophagitis; M54.9 Dorsalgia, unspecified; F17.290 Nicotine dependence, other tobacco product, uncomplicated; Z88.0 Allergy status to penicillin; Z91.048 Other nonmedicinal substance allergy status
CPT/HCPCS: 36415; 58661; 84703; 85027; 86850; 86900; 86901; 88302; J0131; J1100; J1885; J2250; J2405; J3010

== ENCOUNTER → 2023-07-26 | Outpatient (REF) | payer OTHER ==
[~2023-07-26] MED LIST changes: +IBUP80TA PO; +ONDA4TAB6 PO; +PERC5TAB12 PO
== END ==
LOC: M LAB REF 12:14
PROVIDERS: ATTEND Physician Assistant
DX: B34.9 Viral infection, unspecified (principal)

== ENCOUNTER → 2024-02-25 | Outpatient (REF) ==
[~2024-02-25] MED LIST changes: +ONDA-282 PO; -ONDA4TAB6 PO
== END ==
LOC: M EMP 09:37
PROVIDERS: ATTEND Family Medicine
DX: Z20.822 Contact with and (suspected) exposure to COVID-19 (principal)

== ENCOUNTER → 2024-06-02 | Outpatient (CLI) | payer OTHER | LOC: M WHC 08:07 | PROVIDERS: ATTEND Physician Assistant Medical | DX: K80.20 Calculus of gallbladder without cholecystitis without obstruction (principal); K76.0 Fatty (change of) liver, not elsewhere classified; N28.1 Cyst of kidney, acquired; R10.11 Right upper quadrant pain ==

== ENCOUNTER → 2024-06-03 | Outpatient (CLI) | payer OTHER ==
[2024-06-03 16:06] LABS: HEMATOCRIT 39.4 % (36.0-47.0); HEMOGLOBIN 12.7 g/dl (12.0-15.5); MEAN CORPUSCULAR HEMOGLOBIN 27.6 pg (27.0-33.0); MEAN CORPUSCULAR HGB CONC 32.2 g/dl (32.0-36.5); MEAN CORPUSCULAR VOLUME 85.7 fl (80.0-96.0); PLATELET COUNT, AUTOMATED 352 10^3/uL (150-450); WHITE BLOOD COUNT 10.9 10^3/uL (4.0-10.0)
[2024-06-03 16:32] LABS: ALBUMIN 3.4 G/DL (3.2-5.2); ALKALINE PHOSPHATASE 106 U/L (35-104); ALT/SGPT 20 U/L (7.0-40); AST/SGOT 12 U/L (<34); BILIRUBIN,TOTAL 0.2 MG/DL (0.3-1.2); BLOOD UREA NITROGEN 13 MG/DL (9-23); CARBON DIOXIDE LEVEL 24 MMOL/L (20-31); CHLORIDE LEVEL 105 MMOL/L (98-107); CHOLESTEROL LEVEL 167 MG/DL (<200); CHOLESTEROL RISK RATIO 4.71 (<5); CREATININE FOR GFR 0.61 MG/DL (0.55-1.30); GLOMERULAR FILTRATION RATE > 60.0 (>60); GLUCOSE, FASTING 90 MG/DL (60-100); HDL CHOLESTEROL 35.4 MG/DL (>40); LDL CHOLESTEROL 114.6 MG/DL (<100); NON-HDL-C 131.6 MG/DL; POTASSIUM SERUM 4.8 MMOL/L (3.5-5.1); SODIUM LEVEL 141 MMOL/L (136-145); TOTAL PROTEIN 6.8 G/DL (5.7-8.2); TRIGLYCERIDES LEVEL 85 MG/DL (<150)
[2024-06-03 16:34] LABS: LYMPHOCYTES 40 % (16-44); MONOCYTES 4 % (0-5); NEUTROPHILS 56 % (28-66); PLATELET ESTIMATE NORMAL (NORMAL)
[2024-06-03 16:34] LABS: THYROID STIMULATING HORMONE 1.093 uIU/ML (0.55-4.78)
== END ==
LOC: M LAB 15:02
PROVIDERS: ATTEND Physician Assistant
DX: E66.9 Obesity, unspecified (principal); Z68.42 Body mass index [BMI] 45.0-49.9, adult; Z13.1 Encounter for screening for diabetes mellitus; Z13.220 Encounter for screening for lipoid disorders

== ENCOUNTER → 2024-07-16 | Outpatient (CLI) | payer OTHER | LOC: M EKG 13:40 | PROVIDERS: ATTEND Surgery | DX: K80.00 Calculus of gallbladder with acute cholecystitis without obstruction (principal) ==

== ENCOUNTER 2024-07-17 08:59 | Day surgery (SDC) | payer OTHER ==
[~2024-07-17] VITALS: Ht 165.1 cm; Wt 125.6 kg
[~2024-07-17 08:59] MED LIST changes: +LR 1,000 ML IV SCH; +ceFAZolin SOD 2 GM IV ONCE IV ONE
[2024-07-17] MEDS ORDERED: LIDOCAINE 2% 100MG/5ML SDV (FOR ANES.) As Ordered ONE (09:38)
[2024-07-17] MEDS ORDERED: MIDAZOLAM INJ 2MG/2ML VIAL As Ordered ONE (09:38)
[2024-07-17] MEDS ORDERED: ROCURONIUM BROMIDE 50MG/5ML VIAL As Ordered ONE (09:38)
[2024-07-17] MEDS ORDERED: propofoL 200 MG/20 ML VIAL As Ordered ONE (09:38)
[2024-07-17] MEDS ORDERED: fentaNYL 100 MCG/2 ML INJECTION As Ordered ONE (09:39)
[2024-07-17] MEDS: CelecoXIB 400 MG CAP PO ONE (09:45)
[2024-07-17] MEDS: INDOCYANINE GREEN 25MG VIAL (IC-GREEN) As Ordered ONE (10:03)
[2024-07-17] MEDS: ceFAZolin SOD 3 GM in DEXTROSE 5% (D5W) MINI-BAG PLU 1... IV ONE (10:24)
[2024-07-17] MEDS ORDERED: ACETAMINOPHEN 1000MG/100ML IV BAG As Ordered ONE (10:36)
[2024-07-17] MEDS ORDERED: ONDANSETRON 4MG 2ML VIAL As Ordered ONE (10:38)
[2024-07-17] MEDS ORDERED: METOCLOPRAMIDE INJ 10MG/2ML VIAL As Ordered ONE (10:39)
[2024-07-17] MEDS ORDERED: HYDROmorphone HCL 2MG/ML 1ML VIAL As Ordered ONE (10:39)
[2024-07-17] MEDS: LIDOCAINE 1% SDV 30ML VIAL As Ordered ONE (11:54)
[2024-07-17] MEDS ORDERED: oxyCODONE 5MG TAB PO PRN (12:00)
[2024-07-17] MEDS ORDERED: LR 1,000 ML IV SCH (12:00)
[2024-07-17] MEDS ORDERED: HYDROMORPHONE HCL 0.5 MG/ 0.5 ML SYRINGE IV PRN (12:00)
[2024-07-17] MEDS ORDERED: fentaNYL 100 MCG/2 ML INJECTION IV PRN (12:00)
[2024-07-17] MEDS ORDERED: ONDANSETRON 4MG 2ML VIAL IV PRN (12:00)
[2024-07-17] MEDS ORDERED: KETOROLAC 30 MG/ML 1ML VIAL IV ONE (12:45)
[2024-07-17] MEDS ORDERED: NORCO, ANEXSIA 5/325MG TABLET (HYDROcodone/ACETAMINOPHEN) PO PRN ×2 (12:50)
[2024-07-17 13:58] VITALS: BP 131/70; TEMP 96.8; O2SAT 98
[2024-07-17] MEDS ORDERED: KETOROLAC 30 MG/ML 1ML VIAL IV SCH (14:00)
== END 2024-07-17 14:24 | disposition home or self-care (01) ==
LOC: M SDC 08:59
PROVIDERS: ATTEND Surgery
DX: K80.10 Calculus of gallbladder with chronic cholecystitis without obstruction (principal); K76.0 Fatty (change of) liver, not elsewhere classified; Z90.89 Acquired absence of other organs; Z88.0 Allergy status to penicillin; Z91.030 Bee allergy status; Z91.040 Latex allergy status; Z91.048 Other nonmedicinal substance allergy status; Z87.891 Personal history of nicotine dependence
CPT/HCPCS: 47563; 88304; 93005; J0131; J0665; J0690; J1100; J1171; J2250; J2405; J2765; J3010; Q9968; S2900